=== PATIENT | female | born 1975 | race Caucasian/White ===

== ENCOUNTER 2016-06-22 08:49 | Day surgery (SDC) | payer MEDICAID ==
[2016-06-22] MEDS ORDERED: Dextrose 5%-Lactated Ringers 1,000 ML IV SCH (09:00)
--- NOTE | 2016-06-22 10:25 | MY ---
EXAM: (Needle Placement Ltd Rt, Post Procedure Digital Rt) HISTORY: Multiseptate complex cyst. Informed consent was obtained. The skin was prepped in sterile fashion. 1% lidocaine was utilized as local anesthetic. Utilizing ultrasound guidance a hook wire was placed through the central part of the mass. The thick part of the wire is positioned centrally within the mass. The complex cyst colla psed. Postprocedural mammograms demonstrate the thick portion of the wire to be located at the locat ion of the complex cyst which is no longer visualized. Impression: 1. Successful wire localization.
[2016-06-22] MEDS ORDERED: Midazolam 1 MG/ML 2 ML SDV ONE ×2 (10:58→12:41)
[2016-06-22] MEDS ORDERED: Propofol 200 MG/20 ML SDV ONE ×2 (10:58→12:30)
[2016-06-22] MEDS ORDERED: fentaNYL 100 MCG/2 ML SDV ONE (10:58)
[2016-06-22] MEDS ORDERED: Lidocaine 1% with EPINEPHrine 1:100,000 50 ML MDV ONE (11:04)
[2016-06-22] MEDS ORDERED: Bupivacaine 0.5% 50 ML MDV ONE (11:04)
[2016-06-22] MEDS ORDERED: Lactated Ringers 1,000 ML ONE (13:04)
[2016-06-22 14:51] VITALS: BP 113/68
--- NOTE | 2016-07-21 16:25 | OR ---
DATE OF PROCEDURE: 06/22/2016 PREOPERATIVE DIAGNOSIS: Complex cystic area, right breast. POSTOPERATIVE DIAGNOSIS: Complex cystic area, right breast. OPERATIVE PROCEDURE: Ultrasound-guided needle directed excisional biopsy, right breast ([id number]). ANESTHESIA: Local plus IV sedation. INDICATION FOR PROCEDURE: This is a 40-year-old female presenting with an area of discomfort in the right breast, this was located laterally and ultrasound shows a complex cystic area. Plan is to proceed with an excisional biopsy with preoperative needle localization approach. Potential risks including bleeding, infection, cosmetic deformity, and such were reviewed, and the patient wishes to proceed. DETAILS OF PROCEDURE: The patient was taken to the operating room and placed in a supine position. After successful localization of the area in the right breast, the right breast and surrounding areas were prepped and draped. Following that, the patient received some IV sedation. The optimal point of incision was then identified fluoroscopically and that area was anesthetized with 1% lidocaine mixed with Marcaine. A transversely oriented incision over the course of the needle was made and carried down through the skin and subcutaneous tissue. The tissue near the end of the needle was then excised. This area was densely fibrotic and fibrocystic in nature and specimen radiograph confirmed adequate removal of the area of concern. Deeper soft tissues were inspected and bleeding sites cauterized. Incisions were closed with 3-0 and 4-0 Vicryl stitch deep and 4-0 Vicryl subcuticular stitch. Dressing was applied. The patient was taken to the recovery room in satisfactory condition. Isra Murcia MD /[id number]
== END 2016-06-22 14:53 | disposition home or self-care (01) ==
LOC: JP.SDS 08:49
PROVIDERS: ATTEND Surgery
DX: N60.81 Other benign mammary dysplasias of right breast (principal); Z88.8 Allergy status to other drugs, medicaments and biological substances
CPT/HCPCS: 19125; 76942; 88305; G0206; J2250; J2704; J3010; J7042; J7120